=== PATIENT | male | born 1970 | race African-American/Black ===

== ENCOUNTER 2019-07-21 17:38 | Emergency (ER) | payer OTHER, MEDICAID ==
[~2019-07-21] VITALS: Ht 180.3 cm; Wt 86.2 kg
[2019-07-21 17:47] VITALS: BP 114/86
== END 2019-07-21 20:58 | disposition left against medical advice (07) ==
LOC: ER 17:45
DX: M54.9 Dorsalgia, unspecified (principal); Z53.21 Procedure and treatment not carried out due to patient leaving prior to being seen by health care provider